=== PATIENT | male | born 1975 | race Caucasian/White ===

== ENCOUNTER 2024-09-09 09:02 | Observation (INO) | payer MEDICAID, SELFPAY ==
[~2024-09-09] VITALS: Ht 177.8 cm; Wt 90.6 kg
[2024-09-09] MEDS: DOCUSATE SODIUM 100MG CAPSULE PO SCH (09:00)
[2024-09-09] MEDS: BOOSTRIX VACCINE (TETANUS/DIPHTH/ACEL. PERTUSSIS) 0.5ML SYR IM.IMMUN ONE (09:48)
[2024-09-09 09:55] LABS: BASO # 0.1 10^3/uL (0.0-0.2); EOS # 0.4 10^3/uL (0.0-0.5); EOS % 4.7 % (0.0-3.0); HEMATOCRIT 47.7 % (42.0-52.0); HEMOGLOBIN 15.7 g/dl (13.5-17.5); LYMPH # 1.9 10^3/uL (1.5-5.0); LYMPH % 21.3 % (24.0-44.0); MEAN CORPUSCULAR HEMOGLOBIN 29.8 pg (27.0-33.0); MEAN CORPUSCULAR HGB CONC 32.9 g/dl (32.0-36.5); MEAN CORPUSCULAR VOLUME 90.5 fl (80.0-96.0); MONO # 0.6 10^3/uL (0.0-0.8); MONO % 6.4 % (2.0-8.0); NEUTROPHILS % 66.4 % (36.0-66.0); PLATELET COUNT, AUTOMATED 369 10^3/uL (150-450); RED BLOOD COUNT 5.27 10^6/uL (4.30-6.10)
[2024-09-09 10:01] LABS: ERYTHROCYTE SEDIMENTATION RATE 42 mm/hr (0-15)
[2024-09-09 10:28] LABS: BLOOD UREA NITROGEN 12 MG/DL (9-23); CALCIUM LEVEL 9.3 MG/DL (8.5-10.1); CARBON DIOXIDE LEVEL 25 MMOL/L (20-31); CHLORIDE LEVEL 108 MMOL/L (98-107); GLOMERULAR FILTRATION RATE > 60.0 (>60); GLUCOSE, FASTING 122 MG/DL (60-100); POTASSIUM SERUM 4.5 MMOL/L (3.5-5.1); SODIUM LEVEL 141 MMOL/L (136-145)
[2024-09-09] MEDS: ceFAZolin SOD 2 GM in IV 1 EA IV ONE (10:54)
[2024-09-09] MEDS ORDERED: HOME MED LIST COMPLETE! XX SCH (12:10)
[2024-09-09] MEDS ORDERED: MOM 30ML SUSPENSION UDC PO PRN (12:50)
[2024-09-09] MEDS ORDERED: ACETAMINOPHEN 325 MG TAB PO PRN (12:50)
[2024-09-09] MEDS ORDERED: MAALOX 30 ML SUSP *UDC PO PRN (12:50)
[2024-09-09] MEDS: D5W/0.9% SODIUM CHLORIDE 1,000 ML IV SCH (13:29)
[2024-09-09] MEDS ORDERED: propofoL 200 MG/20 ML VIAL As Ordered ONE (14:02)
[2024-09-09] MEDS ORDERED: ONDANSETRON 4MG 2ML VIAL As Ordered ONE (14:02)
[2024-09-09] MEDS ORDERED: KETOROLAC 60MG 2ML VIAL As Ordered ONE (14:02)
[2024-09-09] MEDS ORDERED: SUCCINYLCHOLINE 100MG/5ML SYRINGE As Ordered ONE (14:02)
[2024-09-09] MEDS ORDERED: LIDOCAINE 2% 100MG/5ML SDV (FOR ANES.) As Ordered ONE (14:02)
[2024-09-09] MEDS ORDERED: fentaNYL 100 MCG/2 ML INJECTION As Ordered ONE (14:03)
[2024-09-09] MEDS ORDERED: MIDAZOLAM INJ 2MG/2ML VIAL As Ordered ONE (14:04)
[2024-09-09 14:16] LABS: PROCALCITONIN 0.04 ng/ml
[2024-09-09] MEDS ORDERED: ROCURONIUM BROMIDE 50MG/5ML VIAL As Ordered ONE (14:52)
[2024-09-09] MEDS ORDERED: dexmedeTOMIDine (4MCG/ML)200MCG/50ML BTL (PRECEDEX) As Ordered ONE (14:57)
[2024-09-09] MEDS: ceFAZolin 2 GM/D5W 50 ML IV BAG As Ordered ONE (15:00)
[2024-09-09] MEDS ORDERED: ACETAMINOPHEN 1000MG/100ML IV BAG As Ordered ONE (15:02)
[2024-09-09] MEDS: BACITRACIN OINTMENT 30GM TUBE As Ordered ONE (15:59)
[2024-09-09] MEDS: LR 1,000 ML IV SCH (16:05)
[2024-09-09] MEDS: METOCLOPRAMIDE INJ 10MG/2ML VIAL IV PRN (16:26)
[2024-09-09] MEDS: fentaNYL 100 MCG/2 ML INJECTION IV PRN (16:26)
[2024-09-09] MEDS: oxyCODONE 5MG TAB PO PRN (16:27)
[2024-09-09] MEDS: ONDANSETRON 4MG 2ML VIAL IV PRN (16:27)
[2024-09-09] MEDS: HYDROMORPHONE HCL 0.5 MG/ 0.5 ML SYRINGE IV PRN (17:06)
[2024-09-09 17:30] VITALS: BP 159/90; TEMP 97.3; O2SAT 97
[2024-09-09 18:00] VITALS: BP 131/82; TEMP 97.9; O2SAT 96
[2024-09-09 18:30] VITALS: BP 136/83; TEMP 97.7; O2SAT 93
[2024-09-09] MEDS: ceFAZolin SOD 2 GM in IV 1 EA IV SCH (18:30)
[2024-09-09 19:57] VITALS: BP 133/80; TEMP 97.9; O2SAT 96
== END 2024-09-09 21:00 | disposition left against medical advice (07) ==
LOC: M ED 09:02 → M ED INP 09:03 → M MS5PR 17:25
PROVIDERS: ADMIT Internal Medicine; ATTEND Internal Medicine
DX: S66.021A Laceration of long flexor muscle, fascia and tendon of right thumb at wrist and hand level, initial encounter (principal); M65.141 Other infective (teno)synovitis, right hand; W23.1XXA Caught, crushed, jammed, or pinched between stationary objects, initial encounter; Y92.89 Other specified places as the place of occurrence of the external cause; Y93.E6 Activity, residential relocation; Y99.9 Unspecified external cause status; F17.200 Nicotine dependence, unspecified, uncomplicated
CPT/HCPCS: 26020; 73130; 80048; 84145; 85025; 85652; 86140; 87040; 87070; 87075; 87205; 90715; 99284; J0131; J0330; J0690; J1100; J1171; J1885; J2250; J2405; J2765; J3010

== ENCOUNTER → 2024-09-18 | Outpatient (CLI) | payer MEDICAID ==
[2024-09-18 13:03] LABS: BASO # 0.1 10^3/uL (0.0-0.2); BASO % 1.2 % (0.0-1.0); EOS # 0.3 10^3/uL (0.0-0.5); EOS % 3.5 % (0.0-3.0); HEMATOCRIT 44.1 % (42.0-52.0); HEMOGLOBIN 14.9 g/dl (13.5-17.5); LYMPH # 2.4 10^3/uL (1.5-5.0); LYMPH % 32.9 % (24.0-44.0); MEAN CORPUSCULAR HEMOGLOBIN 30.2 pg (27.0-33.0); MEAN CORPUSCULAR HGB CONC 33.8 g/dl (32.0-36.5); MEAN CORPUSCULAR VOLUME 89.5 fl (80.0-96.0); MONO # 0.7 10^3/uL (0.0-0.8); MONO % 9.3 % (2.0-8.0); NEUTROPHILS # 3.9 10^3/uL (1.5-8.5); NEUTROPHILS % 52.7 % (36.0-66.0); PLATELET COUNT, AUTOMATED 360 10^3/uL (150-450); RED BLOOD COUNT 4.93 10^6/uL (4.30-6.10); WHITE BLOOD COUNT 7.3 10^3/uL (4.0-10.0)
[2024-09-18 13:09] LABS: ERYTHROCYTE SEDIMENTATION RATE 27 mm/hr (0-15)
== END ==
LOC: M LAB 12:17
PROVIDERS: ATTEND Orthopaedic Surgery Hand Surgery
DX: S66.021A Laceration of long flexor muscle, fascia and tendon of right thumb at wrist and hand level, initial encounter (principal); M65.841 Other synovitis and tenosynovitis, right hand; Y93.9 Activity, unspecified; Y92.9 Unspecified place or not applicable

== ENCOUNTER → 2024-09-25 | Day surgery (SDC) | payer MEDICAID ==
[~2024-09-25] VITALS: Ht 177.8 cm; Wt 91.9 kg
[~2024-09-25] MED LIST: DEPA250T32 PO; LIDOCAINE 1% SDV 5ML VIAL SC PRN; NS 1,000 ML IV SCH
[2024-09-25 12:15] VITALS: BP 125/86; TEMP 97.3; O2SAT 98
== END | disposition home or self-care (01) ==
LOC: M SDC 11:56
PROVIDERS: ATTEND Orthopaedic Surgery Hand Surgery
DX: S66.021A Laceration of long flexor muscle, fascia and tendon of right thumb at wrist and hand level, initial encounter (principal); Z53.8 Procedure and treatment not carried out for other reasons

== ENCOUNTER 2024-10-02 06:26 | Day surgery (SDC) | payer MEDICAID ==
[~2024-10-02] VITALS: Ht 177.8 cm; Wt 94.4 kg
[~2024-10-02 06:26] MED LIST changes: -LIDOCAINE 1% SDV 5ML VIAL SC PRN; -NS 1,000 ML IV SCH
[2024-10-02] MEDS ORDERED: MIDAZOLAM INJ 2MG/2ML VIAL As Ordered ONE (08:59)
[2024-10-02] MEDS ORDERED: fentaNYL 100 MCG/2 ML INJECTION As Ordered ONE (08:59)
[2024-10-02] MEDS ORDERED: KETOROLAC 60MG 2ML VIAL As Ordered ONE (09:00)
[2024-10-02] MEDS ORDERED: LIDOCAINE 2% 100MG/5ML SDV (FOR ANES.) As Ordered ONE (09:00)
[2024-10-02] MEDS ORDERED: ACETAMINOPHEN 1000MG/100ML IV BAG As Ordered ONE (09:00)
[2024-10-02] MEDS ORDERED: ONDANSETRON 4MG 2ML VIAL As Ordered ONE (09:00)
[2024-10-02] MEDS ORDERED: propofoL 200 MG/20 ML VIAL As Ordered ONE (09:00)
[2024-10-02] MEDS ORDERED: SUGAMMADEX SODIUM 500 MG/5 ML VIAL (BRIDION) As Ordered ONE (09:01)
[2024-10-02] MEDS ORDERED: ROCURONIUM BROMIDE 50MG/5ML VIAL As Ordered ONE (09:01)
[2024-10-02] MEDS ORDERED: BACITRACIN OINTMENT 30GM TUBE As Ordered ONE (09:24)
[2024-10-02] MEDS ORDERED: ceFAZolin SOD 2 GM in IV 1 EA IV ONE (09:30)
[2024-10-02] MEDS: ceFAZolin 2 GM/D5W 50 ML IV BAG As Ordered ONE (09:53)
[2024-10-02] MEDS ORDERED: HYDROmorphone HCL 2MG/ML 1ML VIAL As Ordered ONE (09:59)
[2024-10-02] MEDS ORDERED: KETAMINE HCL 200MG/20ML VIAL As Ordered ONE (10:53)
[2024-10-02] MEDS ORDERED: NS 1,000 ML IV SCH (12:25)
[2024-10-02] MEDS ORDERED: ONDANSETRON 4MG 2ML VIAL IV PRN (12:25)
[2024-10-02] MEDS ORDERED: fentaNYL 100 MCG/2 ML INJECTION IV PRN (12:25)
[2024-10-02] MEDS ORDERED: PERCOCET PO (12:55)
[2024-10-02] MEDS: oxyCODONE 5MG TAB PO PRN (13:02)
[2024-10-02] MEDS: HYDROMORPHONE HCL 0.5 MG/ 0.5 ML SYRINGE IV PRN (13:02)
[2024-10-02 13:45] VITALS: BP 155/99; TEMP 97.7; O2SAT 94
== END 2024-10-02 14:44 | disposition home or self-care (01) ==
LOC: M SDC 06:26
PROVIDERS: ATTEND Orthopaedic Surgery Hand Surgery
DX: S66.021A Laceration of long flexor muscle, fascia and tendon of right thumb at wrist and hand level, initial encounter (principal); X58.XXXA Exposure to other specified factors, initial encounter; Y92.9 Unspecified place or not applicable; Y93.9 Activity, unspecified; Y99.9 Unspecified external cause status; Z79.899 Other long term (current) drug therapy; F17.210 Nicotine dependence, cigarettes, uncomplicated
CPT/HCPCS: 26489; J0131; J0665; J0690; J1100; J1171; J1885; J2250; J2405; J3010